=== PATIENT | female | born 1965 | race Hispanic/Latino ===

== ENCOUNTER 2020-06-11 12:27 | Outpatient (CLI) | payer BC | END 2020-06-11 12:28 | disposition home or self-care (01) | LOC: BICMAMMO 12:27 | PROVIDERS: ATTEND Family Medicine | DX: Z12.31 Encounter for screening mammogram for malignant neoplasm of breast (principal) | CPT/HCPCS: 77063; 77067 ==

== ENCOUNTER 2021-02-03 13:31 | Outpatient (CLI) | payer OTHER | END 2021-02-03 13:32 | disposition home or self-care (01) | LOC: DTY/OP 13:31 | PROVIDERS: ATTEND Family Medicine | DX: R73.9 Hyperglycemia, unspecified (principal) | CPT/HCPCS: 97802 ==

== ENCOUNTER 2023-08-08 11:15 | Outpatient (CLI) | payer BC | END 2023-08-08 11:16 | disposition home or self-care (01) | LOC: BICMAMMO 11:15 | PROVIDERS: ATTEND Family Medicine | DX: Z12.31 Encounter for screening mammogram for malignant neoplasm of breast (principal) | CPT/HCPCS: 77063; 77067 ==